=== PATIENT | male | born 1950 | race Two or more races ===

== ENCOUNTER 2019-06-19 06:06 | Emergency (ER) | payer MEDICARE ==
[~2019-06-19] VITALS: Ht 175.3 cm; Wt 79.0 kg
[2019-06-19 07:38] VITALS: BP 128/91
== END 2019-06-19 07:42 | disposition home or self-care (01) ==
LOC: ER 06:06
DX: L97.521 Non-pressure chronic ulcer of other part of left foot limited to breakdown of skin (principal); J44.9 Chronic obstructive pulmonary disease, unspecified; G89.29 Other chronic pain; F20.9 Schizophrenia, unspecified; F17.200 Nicotine dependence, unspecified, uncomplicated; F12.90 Cannabis use, unspecified, uncomplicated; Z59.0 Homelessness; Z88.0 Allergy status to penicillin; Z90.49 Acquired absence of other specified parts of digestive tract; Z88.2 Allergy status to sulfonamides; Z98.890 Other specified postprocedural states; Z88.8 Allergy status to other drugs, medicaments and biological substances
CPT/HCPCS: 73630; 99283

== ENCOUNTER 2019-06-20 10:22 | Emergency (ER) | payer MEDICARE ==
[~2019-06-20] VITALS: Ht 175.3 cm; Wt 78.0 kg
[2019-06-20] MEDS ORDERED: acetaminophen 325mg tablet PO ONE (12:00)
[2019-06-20 12:49] VITALS: BP 127/64
== END 2019-06-20 12:52 | disposition home or self-care (01) ==
LOC: ER 10:22
DX: S91.102A Unspecified open wound of left great toe without damage to nail, initial encounter (principal); M54.5 Low back pain; J44.9 Chronic obstructive pulmonary disease, unspecified; G89.29 Other chronic pain; F12.90 Cannabis use, unspecified, uncomplicated; F20.9 Schizophrenia, unspecified; Z90.49 Acquired absence of other specified parts of digestive tract; Z98.890 Other specified postprocedural states; Z59.0 Homelessness; Z88.0 Allergy status to penicillin; Z88.2 Allergy status to sulfonamides; Z88.8 Allergy status to other drugs, medicaments and biological substances; X58.XXXA Exposure to other specified factors, initial encounter; Y93.89 Activity, other specified; Y92.89 Other specified places as the place of occurrence of the external cause; Y99.8 Other external cause status
CPT/HCPCS: 72100; 99283